=== PATIENT | male | born 1930 | race Caucasian/White ===

== ENCOUNTER 2018-09-24 07:26 | Inpatient (IN) | payer OTHER ==
[~2018-09-24] VITALS: Ht 175.3 cm; Wt 114.3 kg
[~2018-09-24 07:26] MED LIST: APAP500 PO; ASPIRIN EC81 M1 PO; BACTRIM DS TAB1 EACH PO; BACTROBAN CREAM30 G1 TOP; CARVEDILOL6.25 MG PO; DUONEB 2.5-0.5 M3 ML INH; FUROSEMIDE 20 M20 M1 PO; GLUCOPHAGE XR750 MG PO; KLOR-CON 1010 MEQ PO; LEVAQUIN 750 M750 MG PO; LISINOPRIL5 MG PO; MEN'S 50+ DAIL1 EACH PO; MUPIROCIN22 GM; OMEPRAZOLE40 MG PO; ONE-A-DAY MEN'1 EAC4 PO; POTASSIUM20 PO; PROSCAR 5MG TABL5 M1 PO; TAMSULOSIN HCL0.4 M1 PO
[2018-09-24 07:33] VITALS: BP 143/79
[2018-09-24] MEDS ORDERED: LOVASTATIN 20 M20 MG PO (07:52)
[2018-09-24] MEDS ORDERED: ASPIR 8181 MG PO (07:54)
[2018-09-24 08:03] LABS: ABSOLUTE MONOCYTES 0.7 thou/uL (0.0-1.2); ABSOLUTE NEUTROPHILS 6.6 thou/uL (1.6-8.1); BASOPHILS 0.4 %; EOSINOPHILS 0.4 %; HEMATOCRIT 46.1 % (42.0-52.0); HEMOGLOBIN 15.4 gm/dL (14.0-18.0); LYMPHOCYTES 11.7 %; MCH 31.5 pg (26.0-34.0); MCHC 33.4 g/dL (28.0-37.0); MCV 94.3 fL (80.0-100.0); MONOCYTES 8.8 %; MPV 8.8 fl. (7.2-11.1); NUCLEATED RBCS 0 /100WBC; PLATELET COUNT* 200 thou/uL (150-400); POLYS 78.7 %; RBC 4.89 mil/uL (4.50-6.00); RDW-CV 14.1 % (10.5-14.5); WBC 8.4 thou/uL (4.0-11.0)
[2018-09-24 08:18] LABS: BE -2.4 mmol/L (-2 to +3); PCO2 32.9 mmHg (35.0-45.0); PO2 63.8 mmHg (75.0-100.0); pH 7.423 (7.340-7.450)
[2018-09-24 08:30] LABS: CALCIUM 8.9 mg/dL (8.5-10.1); CREATININE 1.4 mg/dL (0.6-1.3); POTASSIUM 4.3 mmol/L (3.5-5.1)
[2018-09-24 08:35] LABS: ALBUMIN 3.9 g/dL (3.4-5.0); TOTAL BILIRUBIN 0.5 mg/dL (<0.1-1.0); TOTAL PROTEIN 7.9 g/dL (6.4-8.2); TROPONIN-I LEVEL 0.56 ng/mL (<0.06)
[2018-09-24 08:38] LABS: URINE BILIRUBIN NEGATIVE (Negative); URINE BLOOD TRACE (Negative); URINE CLARITY CLEAR; URINE COLOR YELLOW; URINE GLUCOSE-RANDOM NEGATIVE (Negative); URINE KETONES NEGATIVE (Negative); URINE LEUKOCYTES-REFLEX NEGATIVE (Negative); URINE NITRITE-REFLEX NEGATIVE (Negative); URINE PROTEIN 1+ (Negative); URINE UROBILINOGEN 0.2 E.U./dl (0.2-1.0)
[2018-09-24 09:20] LABS: APTT 28.2 Seconds (25.0-31.3); PROTIME 10.3 Seconds (9.20-11.50)
[2018-09-24 10:33] VITALS: BP 171/85
[2018-09-24 11:00] VITALS: BP 154/85
[2018-09-24 15:34] VITALS: BP 132/86
--- NOTE | 2018-09-24 17:41 | 2DMMODE ---
[place] [address] 2 D/M-MODE ECHOCARDIOGRAM Name: TRAVISMELISSA Ave Room: [address] IN [facility]#: [id number] Admission: 09/24/18 Attend Phys: Denis Groves Discharge: Date of : 32 Date of Service: 09/24/18 1740 Report #: [id number] THIS REPORT FOR: //name// APPROVED REPORT Study performed: 09/24/2018 15:29:42 EXAM: Comprehensive 2D, Doppler, and color-flow Echocardiogram Patient Location: In-Patient Room #: [facility] Status: routine BSA: 2.30 HR: 94 bpm BP: 159/85 mmHg Other Information Study Quality: Fair Indications Pulmonary Embolism 2D Dimensions IVSd: 11.35 (7-11mm) LVOT Diam: 21.49 (18-24mm) LVDd: 38.56 mm PWd: 10.20 (7-11mm) Ascending Ao: 36.12 (22-36mm) LVDs: 23.54 (25-40mm) Aortic Root: 28.49 mm Volumes Left Atrial Volume (Systole) LA ESV Index: 20.00 mL/m2 Aortic Valve AoV Peak David.: 0.78 m/s AO Peak Gr.: 2.45 mmHg LVOT Max P.37 mmHg AO Mean Gr.: 1.36 mmHg LVOT Mean P.31 mmHg LVOT Max V: 0.77 m/s AO V2 VTI: 11.89 cm LVOT Mean V: 0.54 m/s MARIA ALEJANDRA (VTI): 3.42 cm2 LVOT V1 VTI: 11.20 cm Mitral Valve E/A Ratio: 0.53 MV Decel. Time: 140.89 ms MV E Max David.: 0.34 m/s MV PHT: 40.86 [place] [address] 2 D/M-MODE ECHOCARDIOGRAM Name: MELISSA ROBLES Room: [address] IN .R.#: [id number] Admission: 09/24/18 Attend Phys: Denis Groves Discharge: Date of : 32 Date of Service: 09/24/18 1740 Report #: [id number] MVA (PHT): 5.38 cm2 TDI E/Lateral E': 4.86 E/Medial E': 6.80 Medial E' David.: 0.05 m/s Lateral E' David.: 0.07 m/s Pulmonary Valve PV Peak David.: 0.65 m/s PV Peak Gr.: 1.71 mmHg Tricuspid Valve RAP Estimate: 5.00 mmHg TR Peak Gr.: 17.47 mmHg RVSP: 22.47 mmHg PA Pressure: 22.47 mmHg Left Ventricle The left ventricle is normal size. There is normal LV segmental wall motion. There is normal left ventricular wall thickness. Left ventricular systolic function is normal. The left ventricular ejection fraction is within the normal range. LVEF is 60%. Grade I - abnormal relaxation pattern. Right Ventricle The right ventricle is normal size. The right ventricular systolic function is normal. Atria The left atrium size is normal. The right atrium size is normal. Aortic Valve Mild aortic valve sclerosis. No aortic regurgitation is present. There is no aortic valvular stenosis. Mitral Valve The mitral valve is normal in structure. There is no mitral valve regurgitation noted. No evidence of mitral valve stenosis. Tricuspid Valve The tricuspid valve is normal in structure. Mild tricuspid regurgitation. Pulmonic Valve The pulmonary valve is normal in structure. There is no pulmonic [place] [address] 2 D/M-MODE ECHOCARDIOGRAM Name: MELISSA ROBLES Room: [address] IN [facility]#: [id number] Admission: 09/24/18 Attend Phys: Denis Groves Discharge: Date of : 32 Date of Service: 09/24/18 1740 Report #: [id number] Great Vessels The aortic root is normal in size. IVC is normal in size and collapses >50% with inspiration. Pericardium There is no pericardial effusion. <Conclusion> The left ventricle is normal size. There is normal left ventricular wall thickness. Left ventricular systolic function is normal. The left ventricular ejection fraction is within the normal range. LVEF is 60%. Grade I - abnormal relaxation pattern. The right ventricle is normal size. The left atrium size is normal. Mild aortic valve sclerosis. No aortic regurgitation is present. There is no aortic valvular stenosis. The mitral valve is normal in structure. The tricuspid valve is normal in structure. IVC is normal in size and collapses >50% with inspiration. There is no pericardial effusion. There is normal LV segmental wall motion. <ELECTRONICALLY SIGNED> By: Gigi Looney MD, FACC 09/24/181739 39 39 Gigi Looney MD, FACC /INF
[2018-09-24 20:00] VITALS: BP 122/76
[2018-09-25] VITALS: BP 136/81
[2018-09-25 02:43] LABS: HEMATOCRIT 42.9 % (42.0-52.0); HEMOGLOBIN 14.1 gm/dL (14.0-18.0); MCH 31.1 pg (26.0-34.0); MCV 94.2 fL (80.0-100.0); MPV 9.3 fl. (7.2-11.1); RBC 4.55 mil/uL (4.50-6.00); RDW-CV 13.9 % (10.5-14.5); WBC 9.2 thou/uL (4.0-11.0)
[2018-09-25 03:41] LABS: ALBUMIN 3.5 g/dL (3.4-5.0); CALCIUM 8.7 mg/dL (8.5-10.1); CREATININE 1.4 mg/dL (0.6-1.3); MAGNESIUM 1.9 mg/dL (1.8-2.4); PHOSPHORUS* 2.9 mg/dL (2.5-4.9); POTASSIUM 3.9 mmol/L (3.5-5.1); TOTAL BILIRUBIN 0.5 mg/dL (<0.1-1.0); TOTAL PROTEIN 6.9 g/dL (6.4-8.2)
[2018-09-25 04:00] VITALS: BP 135/60
[2018-09-25 08:00] VITALS: BP 108/80
--- NOTE | 2018-09-25 11:19 | EKG ---
[place] [address] ELECTROCARDIOGRAM REPORT Name: TRAVISMELISSA Ave Room: [address] ADM IN M.R.#: [id number] Admission: 09/24/18 Attend Phys: Farhana Aponte Discharge: Date of : 31 Report #: [id number] THIS REPORT FOR: //name// [facility] ED Test Date: 2018-09-24 Test Time: 10:07:07 Pat Name: MELISSA ROBLES Department: Room: [address] Gender: M Surgery Attendant: Ivett MARQUEZ : 1930 Requested By: Faye Mast Order Number: [id number] Keaton MD: J Luis Bullock Measurements Intervals [place] Rate: 106 P: -3 AK: 180 QRS: -23 QRSD: 105 T: 181 QT: 350 QTc: 465 Interpretive Statements Sinus tachycardia Probable left atrial enlargement Inferior infarct, old Consider anterior infarct Lateral leads are also involved Compared to ECG 09/16/2016 20:44:19 Myocardial infarct finding now present Poor R-wave progression no longer present Electronically Signed On 09-25-2018 11:19:35 HYPERCIL CORE TRANSFORMER ASSEMBLER by J Luis Bullock [email or web address] <ELECTRONICALLY SIGNED> By: J Luis Bullock MD, FACC 09/25/18 1119 1007 1007 J Luis Bullock MD, FACC /EPI
--- NOTE | 2018-09-25 11:19 | EKG ---
[place] [address] ELECTROCARDIOGRAM REPORT Name: MELISSA ROBLES Room: [address] ADM IN .R.#: [id number] Admission: 09/24/18 Attend Phys: Farhana Aponte Discharge: Date of : 31 Report #: [id number] THIS REPORT FOR: //name// [facility] ED Test Date: 2018-09-24 Test Time: 07:33:50 Pat Name: MELISSA ROBLES Department: Room: [facility] Gender: M Assembler 1St Shift: : 1930 Requested By: Faye Mast Order Number: [id number] MD: J Luis Bullock Measurements Intervals [place] Rate: 102 P: -2 IA: 212 QRS: -17 QRSD: 101 T: 2 QT: 374 QTc: 488 Interpretive Statements Sinus tachycardia Borderline left axis deviation Abnormal R-wave progression, late transition Borderline T wave abnormalities Borderline prolonged QT interval Compared to ECG 09/16/2016 20:44:19 T-wave abnormality now present Poor R-wave progression no longer present Electronically Signed On 09-25-2018 11:18:56 FEED GRINDER by J Luis Bullock [email or web address] <ELECTRONICALLY SIGNED> By: J Luis Bullock MD, FACC 09/25/18 1118 0733 0733 J Luis Bullock MD, FACC /EPI
[2018-09-25 11:32] VITALS: BP 130/60
--- NOTE | 2018-09-25 13:26 | CON ---
[address] [address] CONSULTATION Name: TRAVISMELISSA Ave Room: [address] IN M.R.#: [id number] Admission: 09/24/18 Attend Phys: Farhana Aponte Discharge: Date of : 31 Report #: [id number] THIS REPORT FOR: //name// CC: YOMI Groves REASON FOR CONSULTATION: Pulmonary embolus, dyspnea. HISTORY OF PRESENT ILLNESS: The patient is an 88-year-old male patient who has a background history of CHF, who presented to the ER with shortness of breath. Apparently, yesterday, he was doing fairly well and this morning, around 04:00 a.m., he woke up from his sleep and he felt short of breath. He had some funny feeling in his chest that he told me he would not describe as pain and he just did not feel right. He called the nursing staff at the facility where he lives and they found his oxygen to be low. He was brought into the ER and found to have a pulmonary embolus. Upon further clarification with the patient, he did not feel any dizziness or lightheadedness. He did not feel any palpitation. No definite chest pain. He reported that he never had a clot before and no family history of clots. Although the past medical history admits to CHF for him, but he never had issues with that according to him and he was told that had resolved; that was a few years ago. He has never been on oxygen and he smoked for 10 years almost 50 years ago. He does not have any oxygen at home. He told me he has a CPAP that he did not use for the last 4 years and he could not tolerate it. He denied any cough, wheezes or sputum production. He denied any fever or chills. He denied any weakness, fatigue or weight loss. REVIEW OF SYSTEMS: EYES: He denied any vision changes, cataract, redness or lacrimation. CONSTITUTIONAL: He denied any fever, weight loss, fatigue or weakness. EAR, NOSE AND THROAT: He denied any nasal discharge, dizziness, epistaxis, postnasal drip or sinus pain. CARDIOVASCULAR: As above. RESPIRATORY: He denied wheezes, dyspnea or orthopnea. GASTROINTESTINAL: He denied any nausea, vomiting, hematemesis or bleeding from any orifice. He denied any indigestion or constipation. GENITOURINARY: Denied any frequency, urgency or hematuria. MUSCULOSKELETAL: He denies any joint pain, lower extremity edema, calf pain, swelling or difficulty walking. SKIN: He denied any rash, lumps, eczema, psoriasis or hair loss. NEUROLOGIC: He denied any fainting, blackouts, seizures, numbness, loss of sensation, paralysis, tingling or memory loss. PSYCHIATRY: Mood is appropriate. Denied insomnia, anxiety or depression. ENDOCRINE: He denied any heat or cold intolerance or increasing thirst. The rest of the review [place] [address] CONSULTATION Name: TRAVISMELISSA Ave Room: [address] IN ..#: [id number] Admission: 09/24/18 Attend Phys: Farhana Aponte Discharge: Date of : 31 Report #: [id number] PAST MEDICAL HISTORY: Congestive heart failure, as mentioned above; diabetes mellitus; hypertension and history of TIA. PAST SURGICAL HISTORY: No major chest surgery. SOCIAL HISTORY: He smoked for 10 years, but he quit almost 50 years ago. He does not drink alcohol excessively. He does not abuse drugs. He is a resident of assisted living. HOME MEDICATIONS: He is on omeprazole, aspirin, metformin, tamsulosin, Coreg, Lasix, multivitamin and potassium supplements. ALLERGIES: PENICILLIN. FAMILY HISTORY: Reviewed and not pertinent to the above chief complaint. He denied any family history of DVT or clots. PHYSICAL EXAMINATION: VITAL SIGNS: On examination, during my evaluation, he was on 4 liters oxygen, O2 saturation 91%. GENERAL APPEARANCE: Awake, alert, oriented, not in distress, not in pain. HEENT: Head normocephalic, atraumatic. Pupils are reactive to light. Oral cavity, moist mucous membrane. Not pale, not jaundiced. External ears look healthy and normal. Oral cavity, Mallampati of 2-3, moist. NECK: Supple. No palpable lymph node. No palpable thyroid. Trachea is central. HEART: S1, S2. No murmur, no gallop. CHEST: Clear to auscultation. No wheezing, no crackles. No tenderness. ABDOMEN: Benign, soft, lax and nontender. Positive bowel sounds. No masses felt. No rebound, no rigidity. EXTREMITIES: Lower extremity, no edema. No calf tenderness. SKIN: Normal for age and race. No rash. PSYCHIATRIC: Mood and affect appropriate. NEUROLOGIC: Moving 4 extremities spontaneously. No focal weakness. LYMPHATICS: No palpable lymph node. LABORATORY DATA: His chest x-ray initially did not show acute pathology, but CT of the chest showed an 8-mm nodule within the right upper lobe, in addition to bilateral pulmonary embolus, mostly bilateral lower lobe. Please see the report for details. His white blood count was 8.4, hemoglobin 15.4 and platelets 200,000. ABG 7.42/32/63 on room air. His INR is 1. His potassium is 4.3 with a creatinine of 1.4, BUN of 18, bicarbonate 27 and chloride 103. IMPRESSION: 1. Acute hypoxic respiratory failure. [address] [place] [address] CONSULTATION Name: MELISSA ROBLES Room: [address] IN [facility].#: [id number] Admission: 09/24/18 Attend Phys: Farhana Aponte Discharge: Date of : 31 Report #: [id number] 2. Acute pulmonary embolus, as above. 3. History of congestive heart failure. 4. History of obstructive sleep apnea, not using his CPAP machine for the last 4 years. PLAN: At this point, the patient is on heparin GTT. He will be changed to p.o. anticoagulation. I would recommend treating him with anticoagulation for at least 6 months. He will need an echocardiogram now and repeat echocardiogram 6 months from now. Also, he would benefit from repeating CTA of the chest after 6 months and the reason to repeat a CT chest with contrast is to monitor the borderline mediastinal lymphadenopathy and the right upper lobe 8-mm nodule. I agree with the Doppler ultrasound of the lower extremities. Thank you for the consult. Discussed with the patient. We will follow along with you. <ELECTRONICALLY SIGNED> By: Anisha Rowley MD 09/25/18 1326 1226 2228MD bony Mar
[2018-09-25 15:48] VITALS: BP 124/61
[2018-09-26] VITALS: BP 131/48
[2018-09-26 04:00] VITALS: BP 144/69
[2018-09-26 07:36] LABS: HEMATOCRIT 43.1 % (42.0-52.0); HEMOGLOBIN 14.3 gm/dL (14.0-18.0); MCH 31.3 pg (26.0-34.0); MCHC 33.3 g/dL (28.0-37.0); MPV 9.5 fl. (7.2-11.1); RBC 4.58 mil/uL (4.50-6.00); RDW-CV 13.9 % (10.5-14.5); WBC 7.1 thou/uL (4.0-11.0)
[2018-09-26 07:48] LABS: CALCIUM 8.5 mg/dL (8.5-10.1); CREATININE 1.3 mg/dL (0.6-1.3); PHOSPHORUS* 2.8 mg/dL (2.5-4.9); POTASSIUM 4.1 mmol/L (3.5-5.1)
[2018-09-26 09:00] VITALS: BP 127/50
[2018-09-26] MEDS ORDERED: XARELTO15 MG PO (11:56)
[2018-09-26 11:59] VITALS: BP 127/50
== END 2018-09-26 14:20 | disposition home health service (06) | DRG 280 ==
LOC: M.ERS 07:26 → M.2W 09:34 → M.TBA-ER 09:34 → M.2W 10:50
PROVIDERS: Personal Emergency Response Attendant; ADMIT Internal Medicine
DX: I21.A1 Myocardial infarction type 2 (principal); I26.99 Other pulmonary embolism without acute cor pulmonale; J96.01 Acute respiratory failure with hypoxia; I50.32 Chronic diastolic (congestive) heart failure; G47.33 Obstructive sleep apnea (adult) (pediatric); I35.8 Other nonrheumatic aortic valve disorders; E78.5 Hyperlipidemia, unspecified; I11.0 Hypertensive heart disease with heart failure; E11.9 Type 2 diabetes mellitus without complications; Z86.73 Personal history of transient ischemic attack (TIA), and cerebral infarction without residual deficits; Z79.82 Long term (current) use of aspirin; Z88.0 Allergy status to penicillin; Z79.84 Long term (current) use of oral hypoglycemic drugs; Z85.51 Personal history of malignant neoplasm of bladder; Z87.891 Personal history of nicotine dependence

== ENCOUNTER 2020-10-07 12:19 | Inpatient (IN) | payer MEDICARE ==
[~2020-10-07] VITALS: Ht 175.3 cm; Wt 107.5 kg
--- NOTE | ~2020-10-07 | EMS ---
[facility] [address] [place] [address] EMS Patient Care Report Name: MELISSA ROBLES Room: [address] IN [facility]#: [id number] Admission: 10/07/20 Attend Phys: Dixon Santillan MD Discharge: Date of : 31 Report #: [id number] THIS REPORT FOR: //name// Report Transmitted: 10/07/2020 21:00 EMS Care Summary [facility] Incident [id number] @ 10/07/2020 11:07 Incident Location [address] [place] [address] Patient MELISSA ROBLES Male, 89 Years 1930 Patient Address [address] [place] [address] Patient History Chronic Obstructive Pulmonary Disease (COPD),Hypertension (HTN),Edema,Sleep Apnea, Patient Allergies Penicillin allergy, Patient Medications Carvedilol, Aspirin, Omeprazole, Potassium, Tamsulosin, Furosemide, Tylenol, Ibuprofen, Lisinopril, Lovastatin, Chief Complaint "I have spells of weakness." Disposition Transported No Lights/[place] Dispatch Reason Sick Person Transported To [facility] Narrative Dispatch: Med 1 dispatched to [facility] for a possible stroke per third [facility] [address] [place] [address] EMS Patient Care Report Name: MELISSA ROBLES Room: [address] IN [facility]#: [id number] Admission: 10/07/20 Attend Phys: Dixon Santillan MD Discharge: Date of : 31 Report #: [id number] constitution party caller. Med 1 copied the call and began our response to the scene. We arrived on scene at [address] without incident. We were met at the door by the nurse caring for the patient who identified herself as Lilian. She advised us the patient was having a stroke. When asked what specific symptoms the patient was having she advised she didn't know. Chief complaint: Upon entering the patients apartment we found an 86 year old male sitting up right in his lift chair. Patient was alert and talking to his early childhood coordinator. He advised that he was feeling tired. History of present illness: Patient returned home from [facility] at 0530 after a sleep study. The patient stated that he has been having spells of generalized weakness for a couple of days. The spells last 10 to 15 min and had about 3 spells a day. He denied any recent falls or other trauma. He has been eating and drinking normally. He denied any issue with formulating words or doing actions as normal. He has no stroke or TIA history. He denied any shortness of air but does wear daily oxygen at 2 lpm via NC. Patient has been having issues with getting to sleep at night. The sleep study he went to the night prior to was to evaluate his sleep apnea history. Assessment: Airway open and patent with clear lung sounds. Able to speak in full sentences without issues. Skin noted to be pink, warm and dry. Pulse present and normal rhythm and rate. Patient assessed on the stroke scale and found to be negative. Patient also negative on the MEND exam. Secondary assessment as noted in tab. Reason for transport: Patient advised by nurse that he may be having a TIA. Patient requested to go to [place] to be further evaluated. Treatments: ALS assessment, vitals, Stroke and MEND exam, ECG with 12 lead ( sinus rhythm), IV access in the left hand. Summary: Patient was assisted to stand from his lift chair. He denied any increased weakness. He denied that he has feeling any complaint. He was able to then turn to sit on the cot. He was covered and secured. He was moved to our oxygen tank via his NC (He was not moved to capnography as he had no resp complaints). He was then taken to the ambulance and placed inside. Treatments as noted above. We transported to the ER non emergent. Patient rested in what appeared to be a comfortable manor on the cot. He spoke to family via his cell phone during transport and was not noted to be in any distress. Vitals were monitored. Radio report called in to the ER 15 min prior. Upon arrival to the ER patient was taken inside. He was taken to the ER bed where he was moved while report was given. Signatures were obtained and care was then transferred. Med 1 cleared [place] [address] EMS Patient Care Report Name: MELISSA ROBLES Room: [address] IN .R.#: [id number] Admission: 10/07/20 Attend Phys: Dixon Santillan MD Discharge: Date of : 31 Report #: [id number] Initial Vitals @11:14P: 82,R: 16,BP: 124/84,Pain: 0/10,GCS: 15,Glucose: 131,SpO2: 98,Revised Trauma: 12, @11:43P: 102,R: 14,BP: 124/47,Pain: 0/10,GCS: 15,SpO2: 98,Revised Trauma: 12, @11:28P: 86,R: 14,BP: 127/86,Pain: 0/10,GCS: 15,Temp: 98.7F,SpO2: 98,Revised Trauma: 12, @11:56P: 73,R: 14,BP: 125/84,Pain: 0/10,GCS: 15,SpO2: 99,Revised Trauma: 12, @12:06P: 66,R: 18,BP: 124/80,Pain: 0/10,GCS: 15,SpO2: 98,Revised Trauma: 12, Assessments @11:15MENTAL:Combative,Confused,Unresponsive,Hallucinations,Time Oriented,Person Oriented,Place Oriented,Event Oriented,SKIN:HEENT:LUNG SOUNDS:ABDOMEN:PELVIS//GI:EXTREMITIES:PULSE:NEURO:@12:01MENTAL:Event Oriented,Time Oriented,Person Oriented,Place Oriented,SKIN:HEENT:LUNG SOUNDS:ABDOMEN:PELVIS//GI:EXTREMITIES:PULSE:NEURO: Impression Generalized Weakness Procedures @11:15ALS AssessmentResponse: UnchangedSucceeded@11:16Surgical Mask on PatientResponse: Unchanged@11:37Saline Lock 0cc (20 ga) Site: Hand-LeftResponse: UnchangedSucceeded@11:15Oxygen FlowRate: 2 Device: Nasal Cannula (NC) Response: UnchangedSucceeded@11:3612-Lead ECG Timeline 11:06,Call Received 11:07,Dispatched 11:07,En Route 11:11,On Scene 11:13,At Patient 11:14,BP: 124/84 M,PULSE: 82,RR: 16 R,SPO2: 98 Ox,ETCO2: ,B,PAIN: 0,GCS: 15, 11:15,ALS Assessment,Response: UnchangedSucceeded, 11:15,Oxygen FlowRate: 2 Device: Nasal Cannula (NC) Response: UnchangedSucceeded, 11:16,Surgical Mask on Patient,Response: Unchanged 11:28,BP: 127/86 M,PULSE: 86,RR: 14 R,SPO2: 98 Ox,ETCO2: ,BG: ,PAIN: 0,GCS: 15, 11:35,Depart Scene 11:36,12-Lead ECG, 11:37,Saline Lock 0cc 20 ga Site: Hand-Left,Response: UnchangedSucceeded, 11:43,BP: 124/47 M,PULSE: 102,RR: 14 R,SPO2: 98 Ox,ETCO2: ,BG: ,PAIN: 0,GCS: 15, 11:56,BP: 125/84 M,PULSE: 73,RR: 14 R,SPO2: 99 Ox,ETCO2: ,BG: ,PAIN: 0,GCS: 15, 12:06,BP: 124/80 M,PULSE: 66,RR: 18 R,SPO2: 98 Ox,ETCO2: ,BG: ,PAIN: 0,GCS: 15, 12:16,[place] [address] EMS Patient Care Report Name: MELISSA ROBLES Ave Room: [address] IN .R.#: [id number] Admission: 10/07/20 Attend Phys: Dixon Santillan MD Discharge: Date of : 31 Report #: [id number] 13:08,Call Closed Disclaimer [email or web address] Copyright 2020 [employer] This EMS Care Summary contains data elements from the applicable legal record (which may be displayed differently). It is designed to provide pertinent information for the following purposes: continuity of care, clinical quality, and state data reporting. The complete legal record is available to ED staff and administrators of the receiving hospital in [employer]'s Patient Tracker. All data is provided "as is."
[~2020-10-07 12:19] MED LIST changes: +ASPIR 8181 MG PO; -CARVEDILOL6.25 MG PO; +COREG6.25 MG PO; +LOVASTATIN 20 M20 MG PO; +XARELTO15 MG PO
[2020-10-07 12:27] VITALS: BP 186/94
[2020-10-07 13:07] LABS: ABSOLUTE BASOPHILS 0.1 thou/uL (0.0-0.2); ABSOLUTE EOSINOPHILS 0.1 thou/uL (0.0-0.7); ABSOLUTE LYMPHOCYTES 1.1 thou/uL (0.8-5.3); ABSOLUTE MONOCYTES 0.7 thou/uL (0.0-1.2); ABSOLUTE NEUTROPHILS 4.9 thou/uL (1.6-8.1); BASOPHILS 0.7 %; EOSINOPHILS 0.9 %; HEMATOCRIT 41.1 % (42.0-52.0); HEMOGLOBIN 13.6 gm/dL (14.0-18.0); LYMPHOCYTES 16.2 %; MCH 30.7 pg (26.0-34.0); MCHC 33.1 g/dL (28.0-37.0); MCV 92.9 fL (80.0-100.0); MONOCYTES 10.8 %; MPV 9.2 fl. (7.2-11.1); NUCLEATED RBCS 0 /100WBC; PLATELET COUNT* 242 thou/uL (150-400); POLYS 71.4 %; RBC 4.43 mil/uL (4.50-6.00); RDW-CV 13.4 % (10.5-14.5); WBC 6.9 thou/uL (4.0-11.0)
[2020-10-07 13:15] LABS: CALCIUM 8.5 mg/dL (8.5-10.1); CREATININE 1.2 mg/dL (0.6-1.3); POTASSIUM 3.9 mmol/L (3.5-5.1)
[2020-10-07 13:17] LABS: APTT 25.9 Seconds (25.0-31.3); PROTIME 10.6 Seconds (9.20-11.50)
[2020-10-07 13:25] LABS: ALBUMIN 3.8 g/dL (3.4-5.0); TOTAL BILIRUBIN 0.4 mg/dL (<0.1-1.0); TOTAL PROTEIN 7.7 g/dL (6.4-8.2)
--- NOTE | 2020-10-07 15:36 | EKG ---
[place] [address] ELECTROCARDIOGRAM REPORT Name: MELISSA ROBLES Room: [place] [address] [facility]#: [id number] Admission: 10/07/20 Attend Phys: Dixon Santillan, Discharge: Date of : 31 Date of Service: 10/07/20 1224 Report #: [id number] THIS REPORT FOR: //name// [facility] ED Test Date: 2020-10-07 Test Time: 12:24:35 Pat Name: MELISSA ROBLES Department: Room: [facility] Gender: M Foreign Legal Consultant: TRISTAN : 1930 Requested By: Tod Alex Order Number: [id number] MD: Gigi Looney Measurements Intervals [place] Rate: 76 P: 9 FL: 187 QRS: -23 QRSD: 100 T: 31 QT: 398 QTc: 448 Interpretive Statements Sinus rhythm Borderline left axis deviation Borderline T wave abnormalities Compared to ECG 09/24/2018 10:07:07 T-wave abnormality now present Sinus tachycardia no longer present Myocardial infarct finding no longer present Electronically Signed On 10-07-2020 15:36:15 PROJECT ARCHIVIST by Gigi Looney [email or web address] <ELECTRONICALLY SIGNED> By: Gigi Looney MD, FACC 10/07/20 1536 1224 1224 Gigi Looney MD, FACC /EPI
[2020-10-07 16:48] VITALS: BP 160/85
[2020-10-07 16:50] VITALS: BP 189/80
[2020-10-07 19:23] LABS: URINE BILIRUBIN NEGATIVE (Negative); URINE BLOOD NEGATIVE (Negative); URINE CLARITY CLEAR; URINE COLOR YELLOW; URINE GLUCOSE-RANDOM NEGATIVE (Negative); URINE KETONES NEGATIVE (Negative); URINE LEUKOCYTES-REFLEX NEGATIVE (Negative); URINE NITRITE-REFLEX NEGATIVE (Negative); URINE PROTEIN NEGATIVE (Negative); URINE SPECIFIC GRAVITY 1.015 (1.005-1.030)
[2020-10-07] MEDS ORDERED: IBUPROFEN200 M1 PO (19:26)
[2020-10-07] MEDS ORDERED: TYLENOL EXTRA500 MG PO (19:26)
[2020-10-07] MEDS ORDERED: BIOFREEZE118 ML TOP (19:26)
[2020-10-07 19:50] VITALS: BP 180/88
[2020-10-08] VITALS: BP 154/78
[2020-10-08 04:00] VITALS: BP 163/78
[2020-10-08 04:27] LABS: HEMATOCRIT 37.9 % (42.0-52.0); HEMOGLOBIN 12.5 gm/dL (14.0-18.0); MCH 30.6 pg (26.0-34.0); MCHC 33.1 g/dL (28.0-37.0); MCV 92.4 fL (80.0-100.0); MPV 9.8 fl. (7.2-11.1); RBC 4.1 mil/uL (4.50-6.00); RDW-CV 13.5 % (10.5-14.5); WBC 5.7 thou/uL (4.0-11.0)
[2020-10-08 04:52] LABS: ANION GAP 8 mmol/L (7-16); BUN 12 mg/dL (7-18); CHLORIDE 103 mmol/L (98-107); CO2 27 mmol/L (21-32); CREATININE 1.1 mg/dL (0.6-1.3); GLUCOSE 109 mg/dL (70-99); POTASSIUM 3.5 mmol/L (3.5-5.1); SODIUM 138 mmol/L (136-145)
[2020-10-08 04:56] LABS: CHOLESTEROL 117 mg/dL (<200); HDL CHOLESTEROL 31 mg/dL (>40); LDL CHOLESTEROL 65 mg/dL (<100); MAGNESIUM 2.1 mg/dL (1.8-2.4); TC:HDL 3.8 Ratio (Not establshd); TRIGLYCERIDE 109 mg/dL (<150); VLDL 22 mg/dL (<40)
[2020-10-08 04:57] LABS: SERUM ASSESSMENT Clear
[2020-10-08 08:00] VITALS: BP 158/79
--- NOTE | 2020-10-08 10:32 | 2DMMODE ---
[place] [address] 2 D/M-MODE ECHOCARDIOGRAM Name: MELISSA ROBLES Room: [address] IN [facility]#: [id number] Admission: 10/07/20 Attend Phys: Dixon Santillan, Discharge: Date of : 32 Date of Service: 10/08/20 1032 Report #: [id number] THIS REPORT FOR: cc: YOMI THIBODEAUX RORI A. FNP Holkins, John M. MD [facility] ~ APPROVED REPORT Study performed: 10/07/2020 15:40:08 EXAM: Comprehensive 2D, Doppler, and color-flow Echocardiogram Patient Location: In-Patient Room #: ER Status: routine BSA: 2.26 HR: 72 bpm BP: 186/94 mmHg Rhythm: NSR Other Information Study Quality: Good Indications CVA/TIA Echo Enhancing Agent Indication: Rule out Shunt Agent(s) / Amount(s) Used: Agitated Saline 10 cc 2D Dimensions IVSd: 15.42 (7-11mm) LVOT Diam: 24.60 (18-24mm) LVDd: 55.43 mm PWd: 12.40 (7-11mm) Ascending Ao: 35.82 (22-36mm) LVDs: 34.20 (25-40mm) Aortic Root: 41.88 mm Volumes Left Atrial Volume (Systole) LA ESV Index: 28.10 mL/m2 Aortic Valve AoV Peak David.: 1.11 m/s AO Peak Gr.: 4.95 mmHg LVOT Max P.20 mmHg AO Mean Gr.: 2.78 mmHg LVOT Mean P.57 [place] [address] 2 D/M-MODE ECHOCARDIOGRAM Name: MELISSA ROBLES Room: [address] IN ..#: [id number] Admission: 10/07/20 Attend Phys: Dixon Santillan, Discharge: Date of : 32 Date of Service: 10/08/20 1032 Report #: [id number] LVOT Max V: 0.89 m/s AO V2 VTI: 24.23 cm LVOT Mean V: 0.58 m/s MARIA ALEJANDRA (VTI): 4.87 cm2 LVOT V1 VTI: 24.82 cm Mitral Valve E/A Ratio: 0.62 MV Decel. Time: 364.66 ms MV E Max David.: 0.51 m/s MV PHT: 105.75 ms MVA (PHT): 2.08 cm2 TDI E/Lateral E': 7.29 E/Medial E': 8.50 Medial E' David.: 0.06 m/s Lateral E' David.: 0.07 m/s Pulmonary Valve PV Peak David.: 0.77 m/s PV Peak Gr.: 2.39 mmHg Tricuspid Valve RAP Estimate: 5.00 mmHg TR Peak Gr.: 19.15 mmHg RVSP: 24.00 mmHg PA Pressure: 24.00 mmHg Left Ventricle The left ventricle is normal size. There is normal LV segmental wall motion. There is normal left ventricular wall thickness. Left ventricular systolic function is normal. The left ventricular ejection fraction is within the normal range. LVEF is 50-55%. Grade I - abnormal relaxation pattern. Right Ventricle The right ventricle is normal size. The right ventricular systolic function is normal. Atria The left atrium size is normal. Injection of bubbles documented no interatrial shunt. The right atrium size is normal. Aortic Valve Mild aortic valve sclerosis. No aortic regurgitation is present. There is no aortic valvular stenosis. Mitral Valve Mild mitral annular calcification. Trace mitral regurgitation. No evidence [place] [address] 2 D/M-MODE ECHOCARDIOGRAM Name: MELISSA ROBLES Room: [address] IN [facility]#: [id number] Admission: 10/07/20 Attend Phys: Dixon Santillan, Discharge: Date of : 32 Date of Service: 10/08/20 1032 Report #: [id number] Tricuspid Valve The tricuspid valve is normal in structure. Trace tricuspid regurgitation. No pulmonary hypertension. Pulmonic Valve The pulmonary valve is normal in structure. There is no pulmonic valvular regurgitation. Great Vessels The aortic root is normal in size. IVC is normal in size and collapses >50% with inspiration. Pericardium There is no pericardial effusion. <Conclusion> The left ventricle is normal size. There is normal left ventricular wall thickness. Left ventricular systolic function is normal. The left ventricular ejection fraction is within the normal range. LVEF is 50-55%. Grade I - abnormal relaxation pattern. The right ventricle is normal size. The left atrium size is normal. Mild aortic valve sclerosis. No aortic regurgitation is present. There is no aortic valvular stenosis. Mild mitral annular calcification. Trace mitral regurgitation. No evidence of mitral valve stenosis. The tricuspid valve is normal in structure. IVC is normal in size and collapses >50% with inspiration. There is no pericardial effusion. There is normal LV segmental wall motion. Injection of bubbles documented no interatrial shunt. <ELECTRONICALLY SIGNED> By: Gigi Looney MD, FACC 10/08/20 1032 1032 103 Gigi Looney MD, FACC /INF
[2020-10-08 12:00] VITALS: BP 130/79
[2020-10-08 16:10] VITALS: BP 174/77
[2020-10-08 20:00] VITALS: BP 176/76
[2020-10-09] VITALS (7 sets, daily range): BP systolic 120–187; BP diastolic 68–78
[2020-10-09 03:06] LABS: GLYCOHEMOGLOBIN (HGB A1C) 6.1 % (4.8-5.6)
[2020-10-10 04:00] VITALS: BP 165/86
[2020-10-10 08:25] VITALS: BP 142/74
[2020-10-10 11:54] VITALS: BP 90/45
[2020-10-10 16:28] VITALS: BP 124/58
[2020-10-10 21:00] VITALS: BP 146/51
[2020-10-11] VITALS (7 sets, daily range): BP systolic 121–165; BP diastolic 41–75
[2020-10-11 05:16] LABS: CALCIUM 8.7 mg/dL (8.5-10.1); CREATININE 1.1 mg/dL (0.6-1.3); POTASSIUM 3.4 mmol/L (3.5-5.1)
--- NOTE | 2020-10-11 10:55 | CON ---
[address] [address] CONSULTATION Name: MELISSA ROBLES Room: [address] IN .R.#: [id number] Admission: 10/07/20 Attend Phys: Dixon Santillan MD Discharge: Date of : 32 Report #: [id number] THIS REPORT FOR: //name// cc: YOMI THIBODEAUX RORI A. FNP ~ DATE OF SERVICE: 10/08/2020 HISTORY OF PRESENT ILLNESS: This is an 89-year-old male patient on which I cannot get any good history. This patient indicates that he lives in an assisted living. He has been doing that since the s. It is not clear why he went to the assisted living. He said he usually does not need much assistance. About a week or so ago he started having dizziness and room spinning. The duration is less according to the history, he gave to the other people. He had falls because of that. He does not believe he hit his head. He was found to have ataxic gait when he was in the Emergency Room as I understand from the records. Since then, he has not been allowed to walk and he does not know if he has improved or not, his physical therapy evaluation is pending. REVIEW OF SYSTEMS: A 14-point review of system was carried out. 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 He denies any stroke in the past. I carried out 14-point review of system in this patient. It was mostly noncontributory. PAST MEDICAL HISTORY: Negative for this kind of ambulation difficulty. He says he has an electric chair, but he says that is for relaxation. Otherwise, he was able to ambulate without any difficulty by himself. He did have some swelling in the lower extremities, which was being treated. FAMILY HISTORY: Unremarkable. SOCIAL HISTORY: He does not drink any alcohol. PHYSICAL EXAMINATION: Indicate that he is alert, responsive. First he said it is May, but then quickly changed it to September. He could not tell me the exact date, but knew what hospital he was in. His memory in general looks poor, but I do not know what his baseline is. His cranial nerve examination 2-12 looks unremarkable. I did not see any nystagmus. He does appear to have generalized weakness, but I do not know what his baseline is. He takes a long time to do the position sense, but ultimately gets it right. Reflexes, if anything is diminished and there is difficult to tell about plantars. Sometime, it looks like it may be upgoing, but it is difficult to tell[place] [address] CONSULTATION Name: [address] Room: [address] IN .R.#: [id number] Admission: 10/07/20 Attend Phys: Dixon Santillan MD Discharge: Date of : 32 Report #: [id number] examination is unremarkable. Blood pressure is 158/79, pulse is 68, and temperature is 97.9. LABORATORY DATA: White count is normal. GFR is okay also. His last vitamin B12 was in 2012 and it was low. IMPRESSION: Pretty difficult to form in this patient. It would appear that he has developed what looks like acute ataxia and dizziness. Because of that initially a posterior fossa CVA should be excluded and if that is excluded he will need spine workup to make sure there is no pathology there and an EMG to make sure that he is not developing any neuropathy including Guillain-[place] syndrome. I had a long talk with the patient and we will repeat his B12 because the last time it was low. We will see if we can get an MRI done to look for posterior fossa, which is almost always missed by CT. If MRI of the brain, give us the diagnosis, we may not have to do too much workup on him to look for other differential otherwise I think his C-spine and EMG need to be done. We will also get him evaluated with physical therapy and see how he does with that. Further workup will depend upon the outcome of this testing and we will await the patient's MRI. Thank you very much for this referral and if you have any questions, please feel free to contact me. I spent more than 50 minutes of time taking care of this patient today and majority was spent counseling and coordinating. <ELECTRONICALLY SIGNED> By: Vargas Hoyt MD 10/11/20 1055 1037 [id number] Hoyt MD /nt
[2020-10-12 05:37] VITALS: BP 147/56
[2020-10-12 08:00] VITALS: BP 145/40
[2020-10-12] MEDS ORDERED: COREG6.25 MG PO (09:35)
[2020-10-12] MEDS ORDERED: LISINOPRIL10 MG PO (09:35)
[2020-10-12] MEDS ORDERED: VITAMIN D325 MCG PO (09:35)
[2020-10-12] MEDS ORDERED: VITAMIN B-121000 MC2 SUBLING (09:35)
[2020-10-12 12:26] VITALS: BP 114/38
[2020-10-12 14:05] VITALS: BP 125/49
[2020-10-12 15:54] VITALS: BP 120/50
[2020-10-12 20:00] VITALS: BP 112/72
[2020-10-13 00:20] VITALS: BP 131/56
[2020-10-13 04:14] VITALS: BP 131/60
[2020-10-13 10:20] VITALS: BP 157/79
[2020-10-13 12:12] VITALS: BP 131/43
[2020-10-13 17:26] VITALS: BP 171/71
[2020-10-13 20:05] VITALS: BP 164/64
[2020-10-14] VITALS: BP 149/59
[2020-10-14 04:00] VITALS: BP 141/96
[2020-10-14 08:00] VITALS: BP 139/57
[2020-10-14 12:10] VITALS: BP 138/75
[2020-10-14 16:05] VITALS: BP 140/59
[2020-10-14 20:00] VITALS: BP 182/68
[2020-10-15] VITALS: BP 143/62
[2020-10-15 04:00] VITALS: BP 126/48
[2020-10-15 08:00] VITALS: BP 125/57
[2020-10-15 11:00] VITALS: BP 112/45
== END 2020-10-15 16:05 | DRG 64 ==
LOC: M.ERS 12:19 → M.2W 14:30 → M.TBA-ER 14:30 → M.2W 16:31
PROVIDERS: Emergency Medicine Emergency Medical Services; ADMIT Internal Medicine; ATTEND Internal Medicine
DX: I63.9 Cerebral infarction, unspecified (principal); G93.41 Metabolic encephalopathy; I16.1 Hypertensive emergency; I13.0 Hypertensive heart and chronic kidney disease with heart failure and stage 1 through stage 4 chronic kidney disease, or unspecified chronic kidney disease; R27.0 Ataxia, unspecified; E78.5 Hyperlipidemia, unspecified; N18.2 Chronic kidney disease, stage 2 (mild); E66.9 Obesity, unspecified; E53.8 Deficiency of other specified B group vitamins; E55.9 Vitamin D deficiency, unspecified; E78.2 Mixed hyperlipidemia; E11.22 Type 2 diabetes mellitus with diabetic chronic kidney disease; Z85.51 Personal history of malignant neoplasm of bladder; Z88.0 Allergy status to penicillin; Z87.891 Personal history of nicotine dependence; Z68.35 Body mass index [BMI] 35.0-35.9, adult; Z79.82 Long term (current) use of aspirin; Z79.899 Other long term (current) drug therapy; Z20.828 Contact with and (suspected) exposure to other viral communicable diseases; Z82.49 Family history of ischemic heart disease and other diseases of the circulatory system

== ENCOUNTER 2020-12-20 11:57 | Emergency (ER) | payer MEDICARE ==
[~2020-12-20] VITALS: Ht 175.3 cm; Wt 107.0 kg
[~2020-12-20 11:57] MED LIST changes: +BIOFREEZE118 ML TOP; +IBUPROFEN200 M1 PO; +LISINOPRIL10 MG PO; +TYLENOL EXTRA500 MG PO; +VITAMIN B-121000 MC2 SUBLING; +VITAMIN D325 MCG PO
[2020-12-20 12:31] LABS: ABSOLUTE EOSINOPHILS 0.1 thou/uL (0.0-0.7); ABSOLUTE LYMPHOCYTES 1.2 thou/uL (0.8-5.3); ABSOLUTE MONOCYTES 0.7 thou/uL (0.0-1.2); ABSOLUTE NEUTROPHILS 5.1 thou/uL (1.6-8.1); BASOPHILS 0.6 %; EOSINOPHILS 1.2 %; HEMATOCRIT 41.1 % (42.0-52.0); HEMOGLOBIN 13.5 gm/dL (14.0-18.0); LYMPHOCYTES 17.2 %; MCH 30.3 pg (26.0-34.0); MCHC 32.9 g/dL (28.0-37.0); MCV 92.2 fL (80.0-100.0); MONOCYTES 9.9 %; MPV 9.2 fl. (7.2-11.1); NUCLEATED RBCS 0 /100WBC; PLATELET COUNT* 225 thou/uL (150-400); POLYS 71.1 %; RBC 4.45 mil/uL (4.50-6.00); RDW-CV 13.6 % (10.5-14.5); WBC 7.2 thou/uL (4.0-11.0)
[2020-12-20 12:43] LABS: CALCIUM 8.8 mg/dL (8.5-10.1); CREATININE 1.1 mg/dL (0.6-1.3); POTASSIUM 3.7 mmol/L (3.5-5.1)
[2020-12-20 12:45] LABS: APTT 25.1 Seconds (25.0-31.3); PROTIME 10.6 Seconds (9.20-11.50)
[2020-12-20 12:54] LABS: ALBUMIN 3.6 g/dL (3.4-5.0); MAGNESIUM 1.8 mg/dL (1.8-2.4); TOTAL BILIRUBIN 0.5 mg/dL (<0.1-1.0); TOTAL PROTEIN 6.9 g/dL (6.4-8.2)
[2020-12-20 14:53] VITALS: BP 178/86
--- NOTE | 2020-12-21 17:03 | EKG ---
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[employer] [facility] : 1930 Requested By: Tod Alex Order Number: [id number] MD: Gigi Looney Measurements Intervals [place] Rate: 66 P: -10 WV: 198 QRS: -27 QRSD: 101 T: 32 QT: 404 QTc: 424 Interpretive Statements Sinus rhythm Borderline left axis deviation Abnormal R-wave progression, late transition Borderline T wave abnormalities Compared to ECG 10/07/2020 12:24:35 No significant changes Electronically Signed On 12-21-2020 17:03:36 [facility] by Gigi Looney [email or web address] <ELECTRONICALLY SIGNED> By: Gigi Looney MD, [facility] 12/21/20 1703 1204 1204 Gigi Looney MD, [facility] /EPI
== END 2020-12-20 14:54 | disposition left against medical advice (07) ==
LOC: M.ERS 11:57
PROVIDERS: Emergency Medicine Emergency Medical Services
DX: I13.0 Hypertensive heart and chronic kidney disease with heart failure and stage 1 through stage 4 chronic kidney disease, or unspecified chronic kidney disease (principal); E11.22 Type 2 diabetes mellitus with diabetic chronic kidney disease; N18.1 Chronic kidney disease, stage 1; E78.5 Hyperlipidemia, unspecified; Z88.0 Allergy status to penicillin; Z86.73 Personal history of transient ischemic attack (TIA), and cerebral infarction without residual deficits